=== PATIENT | female | born 1970 | race Caucasian/White ===

== ENCOUNTER → 2017-12-23 | Outpatient (CLI) | payer BC ==
--- NOTE | 2017-12-23 11:39 | MRI ---
EXAM DESCRIPTION: Cervical Spine: MRI. CLINICAL HISTORY: RADICULOPATHY COMPARISON: Cervical TECHNIQUE: Multiplanar MRI, multiple sequences, non-contrast High-field. FINDINGS: C5-6: Disc desiccation and moderate disc space loss with anterior bulging and endplate ridging. Anterior Modic type I endplate reactive changes. Posterior disc bulge 3 mm impressing on the cord and abutting the bilateral C6 nerve. Borderline central canal stenosis. Bilateral uncinate spurs larger on the right with right neural foraminal stenosis. Possible disc fragment also encroaching on the foramen. Mild left neural foraminal narrowing. Minimal arthrosis right facet. C6-7: Disc desiccation and anterior bulging and endplate ridging. Minimal disc space loss. Posterior broad-based disc bulge abutting the cord and the bilateral C7 nerve roots. Borderline mild canal stenosis. Bilateral uncinate spurs. Mild narrowing right neural foramen with moderate to severe left neural foraminal narrowing. Bilateral facets are negative. C7-T1: Disc desiccation and minimal anterior bulging and endplate ridging. Mild posterior disc bulge. Minimal disc bulge into the right foramen with moderate neural foraminal narrowing. Left neuroforamen is patent. Bilateral facets negative. Moderate canal narrowing. Normal signal in the remaining discs with no bulging. Disc spaces preserved. Canal and neural foramina are patent. Facets are unremarkable. No scoliosis Spine is neutral. No cord compression or cord edema. Atlantoaxial joint is unremarkable. Base of the cerebellar tonsils is above the foramen magnum. Paravertebral soft tissues unremarkable. Vertebral bodies are not compressed at any level. Otherwise normal marrow signal in the remaining vertebral bodies and the posterior elements. IMPRESSION: 1. C5-6 posterior disc bulge abutting the cord and bilateral C6 nerve. Borderline central canal stenosis. Correlate for bilateral C6 radiculopathy. Right neural foraminal stenosis with possible bone spur or disc etiology. Anterior mild spondylosis. 2. Moderate to severe left neural foraminal narrowing at C6-7. Posterior broad-based bulge abutting the bilateral C7 nerve roots. 3. C7-T1 disc bulge into the right foramen with moderate neural foraminal narrowing. Electronically signed by: Raul Fuller MD 12/23/2017 11:38 AM CDT
== END ==
LOC: MRI 06:42
PROVIDERS: ATTEND Family Medicine
DX: M54.12 Radiculopathy, cervical region (principal); M50.222 Other cervical disc displacement at C5-C6 level

== ENCOUNTER 2019-03-21 12:27 | Emergency (ER) | payer BC ==
--- NOTE | 2019-03-21 13:14 | ED.PDOC ---
History of Present Illness - General Chief Complaint: Cardiovascular Problem Stated Complaint: chest heaviness Time Seen by Provider: 03/21/19 12:33 Source: patient - History of Present Illness Initial Comments: Sofi Wylie 49 y/o female stated that she had on and off chest heaviness for the last one week and relieved after doing breathing exercises which partially relieved symptoms but today chest getting more heavy feel something on top of her chest needs to take more deep breaths.Has history of panic attacks presently on Alprazolam 1 mg every 6-8 h took one 3 hours ago.Denies chest pains.no di aphoresis,no N/V. Timing/Duration: 1 week Severity: moderate Location: central Activities at Onset: none Prior Chest Pain/Cardiac Workup: no prior chest pain Worsening Factors: nothing Aspirin Treatment Today: 81 mg x 4 Associated Symptoms: other - see hpi Review of Systems - Review of Systems Constitutional: States: no symptoms reported EENTM: States: no symptoms reported Respiratory: States: no symptoms reported Cardiology: States: see HPI Gastrointestinal/Abdominal: States: no symptoms reported Genitourinary: States: no symptoms reported Musculoskeletal: States: no symptoms reported Skin: States: no symptoms reported Neurological: States: no symptoms reported All other Systems: Reviewed and Negative, No Change from Baseline Past Medical History (General) - Patient Medical History Hx Hypertension: Yes Hx Other PMH: Yes - panic attacks;depression Surgical History: cholecystectomy, gastric bypass, other - hysterectomy;c- section - Social History Hx Tobacco Use: No Hx Alcohol Use: No Hx Substance Use: No Hx Depression: Yes Feels Threatened In Home Enviroment: No Hx Physical Abuse: No Hx Emotional Abuse: No - Female History Patient : No Family Medical History - Family History Mother Hx Cardiac Disease: Yes - mom Physical Exam - Physical Exam General Appearance: Alert, Comfortable, No apparent distress Eyes, Ears, Nose, Throat Exam: normal ENT inspection, pharynx normal Neck: supple, normal inspection Respiratory: lungs clear, normal breath sounds, no respiratory distress Cardiovascular/Chest: normal peripheral pulses, regular rate, rhythm, no murmur Peripheral Pulses: radial,right: 2+, radial,left: 2+ Gastrointestinal/Abdominal: non tender, soft, no organomegaly Extremity: no pedal edema, no calf tenderness Neurologic: alert, oriented x 3 Skin Exam: normal color, warm/dry Progress - Progress Progress: 03/21/19 16:04 Stated feeling better after resting - Results/Orders Results/Orders: 03/21/19 13:15 IV Care:Saline Lock per Protoc QSHIFT Laboratory Results - last 24 hr 03/21/19 03/21/19 03/21/19 13:30 13:40 14:20 WBC 6.7 RBC 3.99 L Hgb 12.8 Hct 37.3 MCV 93.6 MCH 32.1 H MCHC 34.3 RDW 13.3 Plt Count 303 MPV 8.2 Absolute Neuts (auto) 4.10 Absolute Lymphs (auto) 1.70 Absolute Monos (auto) 0.60 Absolute Eos (auto) 0.10 Absolute Basos (auto) 0.10 Neutrophils % 62.1 Lymphocytes % 25.7 Monocytes % 9.4 H Eosinophils % 1.9 Basophils % 0.9 PT 9.9 INR 0.99 PTT (SP) 23.4 D-Dimer, Quantitative 0.22 Sodium 142 Potassium 3.2 L Chloride 105 Carbon Dioxide 25 Anion Gap 15.2 BUN 8 Creatinine 0.77 BUN/Creatinine Ratio 10.4 Random Glucose 68 L Serum Osmolality 279.8 Calcium 9.7 Magnesium 1.9 Total Bilirubin 0.6 Direct Bilirubin < 0.1 Indirect Bilirubin 0.5 AST 26 ALT 18 Alkaline Phosphatase 63 Creatine Kinase 122 CK-MB (CK-2) 1.8 CK-MB (CK-2) % Not Reportable Troponin I < 0.02 Serum Total Protein 7.7 Albumin 4.3 Urine Color Yellow Urine Appearance Clear Urine pH 5.5 Ur Specific [place] <= 1.005 Urine Protein Negative Urine Glucose (UA) Negative Urine Ketones Negative Urine Blood Negative Urine Nitrite Negative Urine Bilirubin Negative Urine Urobilinogen 0.2 Ur Leukocyte Esterase Trace H Urine RBC 0 Urine WBC 0-1 Ur Epithelial Cells 0 Amorphous Sediment Trace Urine Bacteria 0 03/21/19 15:20 WBC RBC Hgb Hct MCV MCH MCHC RDW Plt Count MPV Absolute Neuts (auto) Absolute Lymphs (auto) Absolute Monos (auto) Absolute Eos (auto) Absolute Basos (auto) Neutrophils % Lymphocytes % Monocytes % Eosinophils % Basophils % PT INR PTT (SP) D-Dimer, Quantitative Sodium Potassium Chloride Carbon Dioxide Anion Gap BUN Creatinine BUN/Creatinine Ratio Random Glucose Serum Osmolality Calcium Magnesium Total Bilirubin Direct Bilirubin Indirect Bilirubin AST ALT Alkaline Phosphatase Creatine Kinase CK-MB (CK-2) CK-MB (CK-2) % Troponin I < 0.02 Serum Total Protein Albumin Urine Color Urine Appearance Urine pH Ur Specific [place] Urine Protein Urine Glucose (UA) Urine Ketones Urine Blood Urine Nitrite Urine Bilirubin Urine Urobilinogen Ur Leukocyte Esterase Urine RBC Urine WBC Ur Epithelial Cells Amorphous Sediment Urine Bacteria Discuss all test results with patient - EKG/XRAY/CT EKG: Sinus, Tachy, no ST T wave changes Comments: HR-104 XRAY: chest - no acute changes Departure - Departure Clinical Impression: Chest tightness or pressure Time of Disposition: 16:02 Disposition: Discharge to Home or Self Care Condition: Fair Departure Forms: ED Discharge - Pt. Copy, Patient Portal Self Enrollment Instructions: DI for Chest Pain Referrals: Fred Navarro III, MD [Primary Care Provider] - 1-2 Weeks Additional Instructions: RETURN TO EMERGENCY ROOM NEEDED;Continue with all home medications;Follow up with your primary Md 22 March 2019 for recheck
[2019-03-21] MEDS ORDERED: ASPIRIN (CHEWABLE) 81 MG TAB PO ONE (13:15)
[2019-03-21] MEDS ORDERED: SODIUM CHLORIDE 0.9% 500ML 500 ML IVS ONE (13:15)
--- NOTE | 2019-03-21 15:48 | RAD ---
EXAM DESCRIPTION: Chest,1 View CLINICAL HISTORY: pain COMPARISON: 19 November 2011 TECHNIQUE: AP portable chest FINDINGS: The lungs are clear. There is no infiltrate or effusion. The heart is normal size. Deformity of left-sided ribs is observed from prior fracturing. IMPRESSION: Normal portable chest Electronically signed by: Fred Bundy MD 03/21/2019 3:46 PM CDT
[2019-03-21 17:31] VITALS: BP 113/83; TEMP 97.7; O2SAT 96
== END 2019-03-21 16:20 | disposition home or self-care (01) ==
LOC: ER 12:27
DX: R07.89 Other chest pain (principal); R00.0 Tachycardia, unspecified; F32.9 Major depressive disorder, single episode, unspecified; I10 Essential (primary) hypertension; F41.0 Panic disorder [episodic paroxysmal anxiety]; Z90.49 Acquired absence of other specified parts of digestive tract; Z98.84 Bariatric surgery status; Z79.899 Other long term (current) drug therapy
CPT/HCPCS: 36415; 71045; 80048; 80076; 81001; 82550; 82553; 84484; 85025; 85379; 85610; 85730; 93005; J7040

== ENCOUNTER → 2019-05-03 | Outpatient (CLI) | payer BC ==
--- NOTE | 2019-05-04 08:45 | MRI ---
EXAM DESCRIPTION: Cervical Spine: MRI. CLINICAL HISTORY: 49 years Female M54.12. Bilateral neck pain. COMPARISON: MRI scan cervical spine 12/23/2017. TECHNIQUE: Multiplanar, high-field MRI, multiple sequences, non-contrast Cervical spine. FINDINGS: C3-C4: Disc desiccation with disc space maintained. Trace posterior midline bulge. Minimal posterior ligament thickening. Mild canal narrowing. Bilateral neural foramina are patent. Stable since the prior study. C4-C5: Disc desiccation with disc space maintained. Mild anterior posterior bulging in the midline. Hypertrophic facet arthrosis on the left and posterior ligament thickening. Canal patent with minimal narrowing of the left neural foramen. Stable since the prior study. C5-C6: Moderate disc space loss anterior disc bulging and endplate ridging. Posterior disc osteophyte broad-based bulge abutting the cord. Right side disc osteophyte complex and uncinate spur with right neural foraminal stenosis. This has progressed since the prior study. Left mild hypertrophic facet sclerosis with neural foraminal narrowing and moderate canal narrowing. C6-C7: Disc desiccation and moderate disc space loss. Anterior disc bulging and endplate ridging. Posterior broad-based disc osteophyte bulge abutting the cord. Posterior ligament thickening. Borderline mild central canal stenosis. Left uncinate spur with moderate neural foraminal narrowing. Stable since the prior study. C7-T1: Disc desiccation and minimal disc space loss. Anterior bulging and endplate ridging. Minimal posterior bulge. Mild canal narrowing bilateral neural foramina are patent. Stable from the prior study. Normal signal in the remaining discs with no bulging. Disc spaces preserved. Canal and neural foramina are patent. Facet joints negative. Spinal alignment neutral. No cord compression or cord edema. Atlantoaxial joint unremarkable. Base of the cerebellar tonsils is at the level of the foramen magnum. Paravertebral soft tissues negative.. Vertebral bodies are not compressed at any level. Normal marrow signal in the remaining vertebral bodies and the posterior elements. IMPRESSION: 1. Multiple levels of disc desiccation and disc space endplate hypertrophy, disc bulging, and ligament thickening and hypertrophic facet arthrosis. 2. Right side C5-C6 disc osteophyte complex and uncinate spur causing right neural foraminal stenosis. This is progressed since the prior study. Correlate for right C6 radiculopathy. 3. Multifactorial borderline mild central canal stenosis at C6-C7. Moderate neural foraminal narrowing. Stable since the prior study. Electronically signed by: Raul Fuller MD 05/04/2019 8:44 AM CDT
== END ==
LOC: MRI 07:39
PROVIDERS: ATTEND Anesthesiology Pain Medicine
DX: M50.11 Cervical disc disorder with radiculopathy, high cervical region (principal); M50.121 Cervical disc disorder at C4-C5 level with radiculopathy; M50.122 Cervical disc disorder at C5-C6 level with radiculopathy; M50.123 Cervical disc disorder at C6-C7 level with radiculopathy; M25.78 Osteophyte, vertebrae; M48.02 Spinal stenosis, cervical region

== ENCOUNTER → 2019-07-18 | Outpatient (CLI) | payer BC ==
--- NOTE | 2019-07-18 17:14 | MAM ---
EXAM DESCRIPTION: 3D Diagnostic, Bilateral (accession [id number]), Breast,Bilateral (accession [id number]): Ultrasound CLINICAL HISTORY: 49 yearsFemaleBREAST LUMP right breast lump lower inner quadrant. No personal history no family history breast cancer. Menarche age 11. Childbirth age 17. Hysterectomy approximately 2004. Current user topical HRT. Prior benign biopsy right breast Lifetime risk of developing breast cancer (Tyrer-Cuzick model)(%): 6.4. COMPARISON: Outside prior studies not available for comparison. TECHNIQUE: Bilateral LM, MLO, and CC projection full-field images, digital tomosynthesis technique. Bilateral 2-D digital full-field images. LM, MLO, and CC projections. CAD not available. . Transcutaneous scanning of the bilateral breasts utilizing torres-scale and Doppler modes. Scanning performed by the commercial print salesman and Dr. Fuller. FINDINGS: The breast parenchymal density pattern is: Scattered areas of fibroglandular density. No skin thickening or nipple retraction bilateral solitary microcalcifications. Triangular skin marker at the location of the palpable mass approximately 4:00 position and 9 cm from the nipple. Large complex calcification with circumscribed margins is visualized. In the anterior third of the right breast approximately 9 cm from the nipple at 8:00 is a partially circumscribed and partially ill-defined radiodense mass slightly more dense than the surrounding fibroglandular tissues. In the posterior third of the right breast are 2 smaller nodular densities at the 10:00 position approximately 12 cm from the nipple. Not associated with microcalcifications. In the left breast at the 5:00 position, 9 cm from the nipple are partially circumscribed and lobulated radiodense nodules which are abutting each other and posterior the posterior chest wall. No associated microcalcifications. Bilateral solitary microcalcifications. Ultrasound: Scanning of the right breast at the 4:00 position 6 cm from the nipple abutting the skin marker. Oval-shaped subcutaneous echogenic structure with posterior margin partially obscured and marked posterior acoustic shadowing. Dimensions are approximately 7.3 x 7.8 mm. Not vascular. At 8:00 , 9 cm from the nipple upper-outer quadrant middle third, is a complex solid mass with mostly hypoechoic features but with bands of echogenic material. Margins are partially circumscribed and partially ill-defined. Wider than tall orientation. Mostly posterior acoustic shadowing. Nonvascular. Dimensions are 2.0 x 1.2 cm. 10:00 right breast in the axilla hypoechoic mass with echogenic center and hilum measuring 4.2 x 5.9 mm with central vascularity. Left breast 5:00 9 cm from the nipple. Circumscribed hypoechoic mass with wider than tall orientation. Central vascularity and eccentric echogenic hilum consistent with a lymph node. Measuring 6.6 x 4.6 mm. A second smaller nodule in the adjacent soft tissues measures 3.8 x 4.6 mm also circumscribed hypoechoic and echogenic regions and minimally vascular. Also consistent with a lymph node. IMPRESSION: Bilateral lymph nodes and palpable mass is a completely calcified benign lesion. Complex, 2 cm solid mass upper outer quadrant right breast. May be related to prior biopsy. BI-RADS CATEGORY: 0 - INCOMPLETE- Need prior mammograms for comparison. FOLLOW-UP: Comparison with prior examination(s) when available. Written communication explaining the IMPRESSION and follow-up, will be mailed to the patient and referring health care provider. The FINDINGS and the FOLLOW-UP plan were reviewed in person with the patient after the examination. Electronically signed by: Raul Fuller MD 07/18/2019 5:12 PM SURVEY WORKERS SUPERVISOR
== END ==
LOC: MAMMO 07:51
PROVIDERS: ATTEND Family Medicine
DX: N63.11 Unspecified lump in the right breast, upper outer quadrant (principal)
CPT/HCPCS: 76641; 77066; G0279

== ENCOUNTER → 2020-03-04 | Outpatient (CLI) | payer BC | LOC: GMAL 10:25 | PROVIDERS: ATTEND Family Medicine | DX: Z00.01 Encounter for general adult medical examination with abnormal findings (principal); D51.9 Vitamin B12 deficiency anemia, unspecified; E55.9 Vitamin D deficiency, unspecified ==

== ENCOUNTER → 2020-09-25 | Outpatient (CLI) | payer BC ==
--- NOTE | 2020-09-26 15:41 | MAM ---
EXAM DESCRIPTION: 3D Screening BILATERAL : Digital Mammography. CLINICAL HISTORY: 50 years Female SCREEN . No complaints. No personal or family history of breast cancer. Menarche age 11. [place]iber of age 17. Hysterectomy fourth decade. Currently using topical HRT. Previous mammoplasty.. Lifetime risk of developing breast cancer (Tyrer-Cuzick model)(%): 7.4. COMPARISON: Bilateral diagnostic digital breast tomosynthesis July 2019 TECHNIQUE: Bilateral CC and MLO projection full-field images, digital tomosynthesis mammographic technique. Bilateral digital 2-D full-field MLO images. CAD available for 2-D images. FINDINGS: The breast parenchymal density pattern is: Scattered areas of fibroglandular density. Large inferior unusual calcification consistent with history of breast procedure. Stable lateral mass density right breast and axillary nodes. Stable nodular density posterior lateral left breast. Solitary microcalcifications. No skin thickening or nipple retraction No new focal, stellate mass or density, focal asymmetry , and no suspicious microcalcifications bilaterally. Stable mammograms compared to prior study. IMPRESSION: Benign exam. BIRAD CATEGORY: 2 BENIGN FINDINGS. RECOMMENDATIONS: FOLLOW UP: Routine digital bilateral mammographic screening, one year interval from September 2020. Written communication explaining the IMPRESSION and follow-up, will be mailed to the patient and referring health care provider. According to the [employer], yearly mammograms are recommended starting at age 40 and continuing as long as a woman is in good health. Any breast change noted on a breast self-exam should be reported promptly to the patient's healthcare provider. Breast MRI is recommended for women with an approximately 20-25% or greater lifetime risk of breast cancer, including women with a strong family history of breast or ovarian cancer and women who have been treated for Hodgkin's disease. A negative mammographic report should not delay tissue diagnosis in patients with significant clinical history or physical findings. Extremely dense breast tissue limits the sensitivity of digital mammography. Electronically signed by: Raul Fuller MD 09/26/2020 3:39 PM UNDERWEAR CUTTER
== END ==
LOC: MAMMO 07:43
PROVIDERS: ATTEND Family Medicine
DX: Z12.31 Encounter for screening mammogram for malignant neoplasm of breast (principal)